=== PATIENT | female | born 1950 | race Caucasian/White ===

== ENCOUNTER 2018-07-28 18:43 | Emergency (ER) | payer MEDICARE ==
[2018-07-28 19:19] VITALS: BP 159/81
[2018-07-28] MEDS ORDERED: Ipratropium 0.5MG/2.5ML NEB* 0.5 MG/2.5 ML NEB.SOLN INH ONE (19:22)
[2018-07-28] MEDS ORDERED: Albuterol 2.5 MG/3 ML NEB.SOL* (0.083%) INH ONE (19:22)
--- NOTE | 2018-07-28 19:26 | UC ---
Respiratory Complaint HPI - HPI Summary HPI Summary: The patient is a 68 yo female with the onset of cough about 2 weeks ago.Shortness of breath with exertion started this AM No f/c No CP but has felt chest pressure She hears herself wheezing She has had pneumonia and bronchitis in the past no n/v/d no diaphoresis - History of Current Complaint Chief Complaint: UCRespiratory Stated Complaint: COUGH,DIFFICULTY BREATHING Time Seen by Provider: 07/28/18 18:55 Hx Obtained From: Patient Onset/Duration: Gradual Onset, Lasting Hours Timing: Constant Severity Initially: Mild Severity Currently: Moderate Pain Intensity: 0 Pain Scale Used: 0-10 Numeric Character: Cough: Nonproductive Aggravating Factors: Exertion Alleviating Factors: Nothing Associated Signs And Symptoms: Positive: Dyspnea - primarily with exertion, Wheezing. Negative: Fever, Chills, Pleuritic Chest Pain, Hemoptysis, Dizziness , Calf Pain, Calf Swelling, Edema, URI, Nasal Congestion, Hoarseness, Sinus Discomfort - Allergies/Home Medications Allergies/Adverse Reactions: Allergies Allergy/AdvReac Type Severity Reaction Status Date / Time cephalexin [From Keflex] Allergy Mild Rash Verified 07/28/18 19:08 Home Medications: Home Medications HYDROcodone/ACETAMIN 5-325 MG* [[place] 5-325 TAB*] 1 tab BID PRN 07/28/18 [ History Confirmed 07/28/18] Linagliptin (NF) [Tradjenta (NF)] 1 tab DAILY 07/28/18 [History Confirmed ] Naproxen Sodium [Aleve] 2 cap BID PRN 07/28/18 [History Confirmed 07/28/18] metFORMIN* [Glucophage 500 MG TAB *] 500 - 1,000 mg TID 07/28/18 [History Confirmed 07/28/18] PMH/Surg Hx/FS Hx/Imm Hx Previously Healthy: Yes Endocrine History: Diabetes, Dyslipidemia Cardiovascular History: Hypertension Respiratory History: Bronchitis, Pneumonia GI/ History: Diverticulitis - Surgical History Surgical History: Yes Surgery Procedure, Year, and Place: colon resection for diverticulitis. hernia surgery - Family History Known Family History: Positive: Hypertension - Social History Alcohol Use: None Substance Use Type: None Smoking Status (MU): Never Smoked Tobacco Review of Systems Constitutional: Fatigue Skin: Negative Eyes: Negative ENT: Negative Respiratory: Shortness Of Breath, Cough Cardiovascular: Negative Gastrointestinal: Negative Genitourinary: Negative Motor: Negative Neurovascular: Negative Musculoskeletal: Negative Neurological: Negative Psychological: Negative All Other Systems Reviewed And Are Negative: Yes Physical Exam Triage Information Reviewed: Yes Appearance: Well-Appearing, No Pain Distress, Well-Nourished Vital Signs: Initial Vital Signs Temp 97.2 F 07/28/18 19:12 Pulse 94 07/28/18 19:12 Resp 18 07/28/18 19:12 BP 159/81 07/28/18 19:12 Pulse Ox 97 07/28/18 19:12 Vital Signs Reviewed: Yes Eyes: Positive: Conjunctiva Clear ENT: Positive: Hearing grossly normal, Uvula midline. Negative: Nasal congestion, Nasal drainage, Muffled voice, Hoarse voice Neck: Positive: Supple, Nontender, No Lymphadenopathy Respiratory: Positive: No respiratory distress, No accessory muscle use, Wheezing Cardiovascular: Positive: RRR Musculoskeletal: Positive: ROM Intact, No Edema Neurological: Positive: Alert Psychological Exam: Normal Skin Exam: Normal UC Diagnostic Evaluation - Laboratory O2 Sat by Pulse Oximetry: 97 - normal/not hypoxic - Radiology Radiology Interpretation Completed By: ED Physician Summary of Radiographic Findings: SUSPECT RML INFILTRATE - EKG Cardiac Rate: NL Cardiac Rhythm: Sinus: Normal Ectopy: None ST Segment: Normal Re-Evaluation - Re-Evaluation First Eval Re-Evaluation Time: 19:50 Change: Improved - subjectively much better/better air movement/minimal wheezing Respiratory Course/Dx - Differential Dx/Diagnosis Provider Diagnoses: PNEUMONIA. BRONCHOSPASM Discharge - Sign-Out/Discharge Documenting (check all that apply): Patient Departure All imaging exams completed and their final reports reviewed: No - Discharge Plan Condition: Improved Disposition: HOME Prescriptions: Amoxicillin/Clavulanate TAB* [Augmentin TAB 875*] 875 mg PO BID #14 tab Azithromycin TAB* [Zithromax TAB*] 250 mg PO DAILY #4 tab Patient Education Materials: Bronchospasm (ED), Pneumonia (ED) Additional Instructions: I suspect a pneumonia the offical XR reading is pending To ER for worsening symptoms or if shortness of breath recurs Use inhaler as directed ( 2 puffs 4x day for 7 days) recheck in 2-3 days if not markedly improved - Billing Disposition and Condition Condition: IMPROVED Disposition: Home
[2018-07-28] MEDS ORDERED: Azithromycin TAB* 250 MG PO ONE (20:16)
[2018-07-28] MEDS ORDERED: Albuterol HFA INHALER* 8 gm MDI INH ONE (20:16)
[2018-07-28] MEDS ORDERED: Amoxicillin/Clavulanate TAB* 875 MG PO ONE (20:16)
--- NOTE | 2018-07-29 08:07 | RAD ---
INDICATION: Nonproductive cough for 2 weeks. Afebrile. COMPARISON: No relevant prior exams available on the [facility] [place] [facility] PACS for comparison. TECHNIQUE: Dual energy PA and routine lateral views of the chest were obtained. REPORT: Elevated lung volumes and both diffuse mild prominence of the interstitial markings and patchy rarefaction of the mid to upper lung zone interstitial markings. Accessory azygos lobe at the medial RIGHT upper lung zone. No compelling alveolar consolidation. Medial RIGHT lower lung zone opacity reflects RIGHT convex curve of the thoracic spine resulting displacement of the mediastinum. No suspicious focal pulmonary lesion, pleural effusion, or pneumothorax. Negative for cardiomegaly. Unremarkable central pulmonary vasculature. IMPRESSION: #. Stigmata of obstructive lung disease. No acute pulmonary or cardiac process evident. R2
--- NOTE | 2018-07-29 11:04 | ED ---
Progress - Progress Note Progress Note: Xray final reviewed. No acute process identified by radiology read. Re-Evaluation - Re-Evaluation First Eval Re-Evaluation Time: 19:50 Change: Improved - subjectively much better/better air movement/minimal wheezing Discharge - Sign-Out/Discharge Documenting (check all that apply): Patient Departure All imaging exams completed and their final reports reviewed: Yes - Discharge Plan Condition: Improved Disposition: HOME Prescriptions: Amoxicillin/Clavulanate TAB* [Augmentin TAB 875*] 875 mg PO BID #14 tab Azithromycin TAB* [Zithromax TAB*] 250 mg PO DAILY #4 tab Patient Education Materials: Bronchospasm (ED), Pneumonia (ED) Forms: *Work Release Referrals: Brielle Wallace MD [Primary Care Provider] - Additional Instructions: I suspect a pneumonia the offical XR reading is pending To ER for worsening symptoms or if shortness of breath recurs Use inhaler as directed ( 2 puffs 4x day for 7 days) recheck in 2-3 days if not markedly improved - Billing Disposition and Condition Condition: IMPROVED Disposition: Home
== END 2018-07-28 20:40 | disposition home or self-care (01) ==
LOC: UCCORT 18:43
DX: J18.9 Pneumonia, unspecified organism (principal); J98.01 Acute bronchospasm; E11.9 Type 2 diabetes mellitus without complications; I10 Essential (primary) hypertension; Z87.01 Personal history of pneumonia (recurrent); Z79.84 Long term (current) use of oral hypoglycemic drugs; Z88.1 Allergy status to other antibiotic agents
CPT/HCPCS: 71046; 93005; 99213; A9270-GY; G0463